=== PATIENT | male | born 1985 | race Caucasian/White ===

== ENCOUNTER 2017-05-01 18:16 | Emergency (ER) | payer BC ==
[2017-05-01] MEDS ORDERED: Adacel Vial IM ONE ×2 (18:25→18:51)
[2017-05-01] MEDS ORDERED: MOTRIN 600 MG PO ONE (18:26)
[2017-05-01] MEDS ORDERED: MOTRIN 600 MG ONE (18:51)
[2017-05-01 19:14] VITALS: BP 143/93
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
[2017-05-01 20:04] VITALS: PULSE 80; O2SAT 98
[2017-05-01 20:15] LABS: Appearance CLEAR (CLEAR); Bacteria RARE /HPF (NEGATIVE); Bilirubin NEGATIVE (NEGATIVE); Blood 250 Ery/ul (0-5); Epithelial Cells RARE /HPF (FEW); Glucose NEGATIVE (NEGATIVE); Ketones NEGATIVE (NEGATIVE); Leukocyte Esterase NEGATIVE (NEGATIVE); Nitrite NEGATIVE (NEGATIVE); Protein,Urine Dip TRACE (Negative); Specific Gravity 1.025 (1.005-1.025); Urobilinogen NORMAL mg/dL (0-1)
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
== END 2017-05-01 20:23 | disposition home or self-care (01) ==
LOC: ED 18:16
DX: S33.9XXA Sprain of unspecified parts of lumbar spine and pelvis, initial encounter (principal); V43.52XA Car driver injured in collision with other type car in traffic accident, initial encounter
CPT/HCPCS: 71046; 72100; 72131; 81000; 87086; 90471; 90715; 99284; A9270-GY